=== PATIENT | female | born 1950 | race African-American/Black ===

== ENCOUNTER → 2018-08-31 11:51 | Outpatient (CLI) | payer MEDICARE | END | disposition home or self-care (01) | LOC: D.US 11:51 | DX: E78.2 Mixed hyperlipidemia (principal); I12.9 Hypertensive chronic kidney disease with stage 1 through stage 4 chronic kidney disease, or unspecified chronic kidney disease; N18.3 Chronic kidney disease, stage 3 (moderate); E83.39 Other disorders of phosphorus metabolism; Z68.28 Body mass index [BMI] 28.0-28.9, adult ==

== ENCOUNTER → 2018-10-14 07:45 | Outpatient (CLI) | payer MEDICARE | END | disposition home or self-care (01) | LOC: D.MRI 07:45 | DX: I12.9 Hypertensive chronic kidney disease with stage 1 through stage 4 chronic kidney disease, or unspecified chronic kidney disease (principal); N18.3 Chronic kidney disease, stage 3 (moderate); N28.89 Other specified disorders of kidney and ureter ==